=== PATIENT | male | born 1955 | race Caucasian/White ===

== ENCOUNTER 2018-08-29 07:27 | Inpatient (IN) | payer OTHER ==
[2018-08-22 13:39] VITALS: BMI 24.8
[2018-08-29] MEDS ORDERED: CEFAZOLIN 1 GM/D5W 1 GM/50 ML BAG IVPB ONE (07:42)
[2018-08-29] MEDS ORDERED: CELECOXIB 200 MG CAPSULE PO ONE (07:42)
[2018-08-29] MEDS ORDERED: GABAPENTIN 300 MG CAPSULE (FP) PO ONE (07:42)
[2018-08-29] MEDS ORDERED: oxyCODONE HCL 10 MG SUSTAINED ACTING TABLET PO ONE (07:42)
[2018-08-29] MEDS ORDERED: TRANEXAMIC ACID 1000 MG/10 ML VIAL IVPUSH ONE (07:42)
--- NOTE | 2018-08-29 08:06 | HP ---
Satellite [facility] - Chief Complaint Chief Complaint: left knee pain - Past Medical History Allergies/Adverse Reactions: Allergies Allergy/AdvReac Type Severity Reaction Status Date / Time Iodinated Contrast- Oral and Allergy Intermediate DIARRHEA Verified 08/22/18 13: 47 IV Dye ANTIBIOTICS AdvReac Intermediate DIARRHEA Uncoded 08/22/18 13:19 - Current Medications Current Medications: Home Medications Medication Instructions Recorded Acetaminophen [Tylenol -] 1,000 mg PO BID 08/22/18 Hydrochlorothiazide 25 mg PO DAILY 08/22/18 Ibuprofen 200 mg PO Q8H 08/22/18 Irbesartan 300 mg PO DAILY 08/22/18 Lansoprazole [Prevacid] 30 mg PO HS 08/22/18 Satellite Physical Exam - Physical Examination General Appearance: Well Nourished, Well Developed, Alert & Oriented x3 ENT: Clear Lung: Normal air movement Heart: Regular rate & rhythm Extremities: Other (left knee- + swelling, + ttp, decr rom, nvi, xrays show grade 4 tricompartmental djd) Neurological: Intact, Alert, Oriented Satellite Impression/Plan - Impression/Plan Impression: left knee djd Operative Procedure: left freddie tkr Date to be Performed: 08/29/18
[2018-08-29] MEDS ORDERED: MIDAZOLAM HCL 2 MG/2 ML SINGLE DOSE VIAL ONE (08:22)
[2018-08-29] MEDS ORDERED: BUPIVACAINE HCL/PF (5 MG/ML) 30 ML VIAL IJ ONE (08:22)
[2018-08-29] MEDS ORDERED: BUPIVACAINE LIPOSOME/PF (EXPAREL) 266 MG/20 ML VIAL ONE (08:22)
[2018-08-29] MEDS ORDERED: oxyCODONE HCL 5 MG TABLET PO PRN (08:34)
[2018-08-29] MEDS ORDERED: ONDANSETRON 4 MG/2 ML VIAL IVPUSH PRN (08:34)
[2018-08-29] MEDS ORDERED: ceFAZolin SODIUM 1 GM VIAL ONE ×2 (08:35→10:07)
[2018-08-29] MEDS ORDERED: VANCOMYCIN 1,000 MG VIAL (RESTRICTED TO ID ONLY) ONE (08:35)
[2018-08-29] MEDS ORDERED: ONDANSETRON 4 MG/2 ML VIAL ONE (09:56)
[2018-08-29] MEDS ORDERED: DEXAMETHASONE SOD PHOSPHATE 4 MG/1 ML VIAL ONE (09:56)
[2018-08-29] MEDS ORDERED: PROPOFOL 20 ML ONE ×3 (10:01→10:03)
[2018-08-29] MEDS ORDERED: LIDOCAINE HCL/PF 2% SDV 5ML VIAL ONE (10:03)
[2018-08-29] MEDS ORDERED: MAG HYDROX/AL HYDROX/SIMETH 30 ML UNIT-DOSE CUP PO PRN (10:04)
[2018-08-29] MEDS ORDERED: MAGNESIUM HYDROX 2400MG/30ML ORAL SUSPENSION 30 ML CUP PO PRN (10:04)
[2018-08-29] MEDS ORDERED: SODIUM CHLORIDE 0.9% P/F 10 ML VIAL IJ ONE (10:07)
[2018-08-29] MEDS ORDERED: TRANEXAMIC ACID 1000 MG/10 ML VIAL ONE (10:08)
[2018-08-29] MEDS ORDERED: LACTATED RINGERS SOLUTION 1,000 ML IV SCH (10:15)
[2018-08-29] MEDS ORDERED: VANCOMYCIN 1,000 MG VIAL (RESTRICTED TO ID ONLY) IVPB ONE (10:55)
[2018-08-29] MEDS ORDERED: ACETAMINOPHEN 1000 MG/100 ML VIAL (NON FORMULARY) IVPB ONE (11:34)
[2018-08-29] MEDS ORDERED: ACETAMINOPHEN INJECTION 100 ML IVPB ONE (11:57)
[2018-08-29] MEDS: LACTATED RINGERS SOLUTION 1,000 ML IV SCH (13:23)
[2018-08-29] MEDS: CEFAZOLIN 1 GM/D5W 1 GM/50 ML BAG IVPB SCH (17:33)
--- NOTE | 2018-08-29 17:59 | PN ---
Progress Note, Physician Chief Complaint: AWAKE ALERT S/P CYNTHIA LEFT KNEE TKR AWAKE ALERT NO DISTRESS EVENTS AND NOTES REVIEWED - Current Medication List Current Medications: Active Medications Al Hydroxide/Mg Hydroxide (Mylanta Oral Suspension -) 30 ml PO Q4H PRN PRN Reason: DYSPEPSIA Aspirin (Asa -) 325 mg PO DAILY@0800 [facility] Fentanyl (Sublimaze Injection -) 50 mcg IVPUSH [id number] PRN PRN Reason: PAIN-PACU ORDER X 4 DOSES ONLY Hydrochlorothiazide (Hctz -) 25 mg PO DAILY [facility] Lactated Ringer's (Lactated Ringers Solution) 1,000 mls @ 75 mls/hr IV ASDIR [facility] Last Admin: 08/29/18 13:23 Dose: Not Given Cefazolin Sodium (Ancef 1 Gm Premixed Ivpb -) 1 gm in 50 mls @ 100 mls/hr IVPB Q8H-IV JADE Stop: 08/30/18 02:29 Last Admin: 08/29/18 17:33 Dose: 100 mls/hr Lactated Ringer's (Lactated Ringers Solution) 1,000 mls @ 125 mls/hr IV ASDIR JADE Stop: 08/30/18 06:00 Last Admin: 08/29/18 13:00 Dose: 125 mls/hr Losartan Potassium (Cozaar -) 100 mg PO DAILY [facility] Magnesium Hydroxide (Milk Of Magnesia -) 30 ml PO PRN PRN PRN Reason: CONSTIPATION Multivitamins/Minerals/Vitamin C (Tab-A-Vit -) 1 tab PO DAILY [facility] Ondansetron HCl (Zofran Injection) 4 mg IVPUSH Q6H PRN PRN Reason: NAUSEA AND/OR VOMITING Oxycodone HCl (Roxicodone -) 10 mg PO Q4H PRN PRN Reason: PAIN LEVEL 6-10 Oxycodone HCl (Roxicodone -) 5 mg PO Q4H PRN PRN Reason: PAIN LEVEL 1-5 Pantoprazole Sodium (Protonix -) 40 mg PO DAILY [facility] Senna/Docusate Sodium (Pericolace -) 2 tablet PO BID [facility] - Objective Vital Signs: Vital Signs Temperature 97.8 F 08/29/18 13:27 Pulse Rate 80 08/29/18 14:04 Respiratory Rate 18 08/29/18 14:04 Blood Pressure 97/65 08/29/18 14:04 O2 Sat by Pulse Oximetry (%) 100 08/29/18 14:04 Constitutional: Yes: No Distress Eyes: Yes: WNL HENT: Yes: WNL Neck: Yes: WNL Cardiovascular: Yes: Regular Rate and Rhythm Respiratory: Yes: WNL Gastrointestinal: Yes: WNL Genitourinary: Yes: Other Musculoskeletal: Yes: Other (LEFT TKR WITH DRESSING) Extremities: Yes: Other Edema: No Peripheral Pulses WNL: Yes Integumentary: Yes: Other Wound/Incision: Yes: Dressing Dry and Intact (LEFT KNEE DRESSING NO OOZING OR DISCHARGE ON DRESSING) ...Motor Strength: LLE Psychiatric: Yes: WNL Problem List - Problems (1) Hypertension Code(s): I10 - ESSENTIAL (PRIMARY) HYPERTENSION Qualifiers: Hypertension type: essential hypertension Qualified Code(s): I10 - Essential (primary) hypertension (2) IBS (irritable bowel syndrome) Code(s): K58.9 - IRRITABLE BOWEL SYNDROME WITHOUT DIARRHEA Qualifiers: Irritable bowel syndrome type: with diarrhea Qualified Code(s): K58.0 - Irritable bowel syndrome with diarrhea (3) Osteoarthritis involving multiple joints on both sides of body Code(s): M15.9 - POLYOSTEOARTHRITIS, UNSPECIFIED (4) S/P total knee replacement Assessment/Plan: CYNTHIA TKR LEFT KNEE Code(s): Z96.659 - PRESENCE OF UNSPECIFIED ARTIFICIAL KNEE JOINT Qualifiers: Laterality: left Qualified Code(s): Z96.652 - Presence of left artificial knee joint Assessment/Plan S/P TKR LEFT KNEE CYNTHIA DVT PROPHYLAXIS NON-WEIGHT BEARING TODAY PT AND ORTHOPEDIC F/U HTN CONTROLLED ON LOSTAN/HCTZ LACTATE RINGERS CONTINUE CHECK LABS IN MORNING CHECK URINE OUTPUT VIA URINAL
[2018-08-29] MEDS ORDERED: LACTATED RINGERS SOLUTION 1,000 ML/1,000 ML INFUS.BAG IV STA (18:38)
[2018-08-29] MEDS: oxyCODONE HCL 5 MG TABLET PO PRN (20:01)
--- NOTE | 2018-08-29 21:21 | SPEC ---
DATE OF OPERATION: 08/29/2018 PREOPERATIVE DIAGNOSIS: Degenerative joint disease, left knee. POSTOPERATIVE DIAGNOSIS: Degenerative joint disease, left knee. PROCEDURE: Left total knee replacement with robotic-assisted navigation (MAKOplasty), cementless. SURGICAL ATTENDING: Jessee Samuel MD SENIOR FIELD SERVICE ENGINEER: MAURA Merino ANESTHESIA: Regional and spinal. CLOSURE: A Press-Fit Triathlon cementless knee system with a 3 femur, 3 tibia, 9 PS insert, a 32 patella; No. 1 Vicryl, fascia; 0 and 2-0 for subcutaneous; and 3-0 Monocryl subcuticular with skin glue for skin; 4-0 undyed Vicryl for pin sites. ESTIMATED BLOOD LOSS: Less than 100 mL. COMPLICATIONS: None. CONDITION: To recovery room in stable condition. DESCRIPTION OF OPERATIVE PROCEDURE: Patient was taken to the operating room on August 29, 2018. Regional and spinal anesthesia was administered by the anesthesiologist. IV Kefzol was administered prophylactically prior to the case as well as TXA. The left lower extremity was prepped and draped in the usual sterile fashion. The midline 10- to 12-cm longitudinal incision was made. Hemostasis was achieved with Bovie cautery. Sharp dissection was carried down to the extensor mechanism which was perform the procedure. Medial parapatellar arthrotomy was then performed, leaving a cuff of tissue for later closure. The patella was inverted and the knee was flexed up. The fat pad was excised. Subperiosteal dissection was done on the anteromedial proximal tibia until the knee was able to be brought forward. This was facilitated by taking the ACL, PCL and medial and lateral menisci. Checkpoints were placed in both the femur and in the tibia. Two parallel threaded pins were drilled superior to the knee joint through the already made incision from anterior to posterior just going through the anterior cortex but just engaging but not going through the posterior cortex. Two threaded pins were drilled through 2 small stab incisions in parallel fashion 1 handbreadth below the tibial tubercle through the anterior cortex of the tibia and engaging but not going through the posterior cortex. Both sets of pins were attached to navigation arrays for the CYNTHIA system. The knee was then registered with the navigation system with center of rotation of the hip, medial and lateral malleoli and multiple sites both on the tibia and on the femur. Confirmation of excellent registration was confirmed by "popping the bubbles." At this time, the knee was thoroughly inspected to remove all osteophytes around the knee. The knee was then tensioned in varus/valgus at both full extension and at 90 degrees of flexion to ascertain our gaps. The virtual position of the components was optimized to ensure equal gaps throughout the range of motion. Once this was performed, the robot was brought into the field, was registered. The bone was cut as per the specifications on both the tibia and on the femur. The box cuts were then made as well. Excellent trial stability was obtained on the femur. The tibial baseplate was allowed to "find itself" and then was clipped into place. Confirmation of excellent external rotation of that component was confirmed by the navigation device as well. The patella was calibered for thickness and cut at the appropriate level. The appropriate lollipop was used to drill 3 holes in the patella and a trial asymmetric patellar button was applied. The knee was taken through a range of motion and found to have excellent stability from full extension to full flexion with excellent tracking of the patella. The trial components were then removed. The lug holes were drilled in the femur. The cementless keel was punched in the tibia. The real Press-Fit components were malleted into place, first with the tibia and then with the femur, and then the patella was crimped into place as well. The real polyethylene liner was then clipped into place. Range of motion, stability and tracking were as described earlier. The knee was thoroughly irrigated with copious amounts of irrigation. Vancomycin powder was placed inside the joint. The medial parapatellar arthrotomy was then closed using No. 1 Vicryl interrupted suture. Post closure of the arthrotomy, the knee was taken through a range of motion and found to have no undue tension on the repair. The subcutaneous was then pulse antibiotic irrigated, closed with 0 and 2-0 Vicryl and 3-0 Monocryl subcuticular with skin glue for the skin. Prior to closure, the checkpoints were removed as were the threaded pins. The tibial pin sites were closed with 4-0 undyed Vicryl. A sterile pressure Aquacel dressing was applied. No tourniquet was used during the case. The total blood loss was approximately 100 mL. No complication. Patient was transferred to recovery in stable condition. Mayco IRWIN/[id number]
[2018-08-29] MEDS: SENNOSIDES/DOCUSATE COMBO (SENNA PLUS) TABLET (UD) PO SCH (21:23)
[2018-08-30] MEDS: oxyCODONE HCL 5 MG TABLET PO PRN ×4 (00:13→21:53)
[2018-08-30] MEDS: CEFAZOLIN 1 GM/D5W 1 GM/50 ML BAG IVPB SCH (01:37)
[2018-08-30 07:45] LABS: HEMATOCRIT 32.5 % (35.4-49); HEMOGLOBIN 10.5 GM/dl (11.7-16.9); MCH 25.6 pg (25.7-33.7); MCHC 32.3 g/dl (32.0-35.9); MEAN CELL VOLUME 79.4 fl (80-96); MEAN PLT VOLUME 7.7 fl (7.5-11.1); PLATELET COUNT 227 K/MM3 (134-434); RBC 4.09 M/mm3 (4.00-5.60); WHITE BLOOD COUNT 14.7 K/mm3 (4.0-10.8)
--- NOTE | 2018-08-30 07:46 | PN ---
Progress Note, Physician History of Present Illness: c/o pain - Current Medication List Current Medications: Active Medications Al Hydroxide/Mg Hydroxide (Mylanta Oral Suspension -) 30 ml PO Q4H PRN PRN Reason: DYSPEPSIA Aspirin (Asa -) 325 mg PO DAILY@0800 [facility] Fentanyl (Sublimaze Injection -) 50 mcg IVPUSH [id number] PRN PRN Reason: PAIN-PACU ORDER X 4 DOSES ONLY Lactated Ringer's (Lactated Ringers Solution) 1,000 mls @ 75 mls/hr IV ASDIR [facility] Last Admin: 08/29/18 13:23 Dose: Not Given Magnesium Hydroxide (Milk Of Magnesia -) 30 ml PO PRN PRN PRN Reason: CONSTIPATION Multivitamins/Minerals/Vitamin C (Tab-A-Vit -) 1 tab PO DAILY [facility] Ondansetron HCl (Zofran Injection) 4 mg IVPUSH Q6H PRN PRN Reason: NAUSEA AND/OR VOMITING Oxycodone HCl (Roxicodone -) 10 mg PO Q4H PRN PRN Reason: PAIN LEVEL 6-10 Last Admin: 08/30/18 06:10 Dose: 10 mg Oxycodone HCl (Roxicodone -) 5 mg PO Q4H PRN PRN Reason: PAIN LEVEL 1-5 Pantoprazole Sodium (Protonix -) 40 mg PO DAILY [facility] Senna/Docusate Sodium (Pericolace -) 2 tablet PO BID [facility] Last Admin: 08/29/18 21:23 Dose: Not Given - Objective Vital Signs: Vital Signs Temperature 99.2 F 08/30/18 06:00 Pulse Rate 88 08/30/18 06:00 Respiratory Rate 18 08/30/18 06:00 Blood Pressure 115/63 08/30/18 06:00 O2 Sat by Pulse Oximetry (%) 94 L 08/30/18 06:00 Cardiovascular: Yes: Pulse Irregular Respiratory: Yes: Regular, CTA Bilaterally Gastrointestinal: Yes: Normal Bowel Sounds, Soft Wound/Incision: Yes: Dressing Dry and Intact Problem List - Problems (1) S/P total knee replacement Assessment/Plan: -Pain control -Further plan per ortho Code(s): Z96.659 - PRESENCE OF UNSPECIFIED ARTIFICIAL KNEE JOINT Qualifiers: Laterality: left Qualified Code(s): Z96.652 - Presence of left artificial knee joint (2) Hypertension Assessment/Plan: -Observe Vital Signs Period Temp Pulse Resp BP Sys/Blackwood Pulse Ox Last 24 Hr 97.6 F-99.2 F 63-93 14-18 95-115/55-71 94-100 Code(s): I10 - ESSENTIAL (PRIMARY) HYPERTENSION Qualifiers: Hypertension type: essential hypertension Qualified Code(s): I10 - Essential (primary) hypertension
[2018-08-30] MEDS: ASPIRIN 325 MG TABLET PO SCH (08:09)
[2018-08-30 08:15] LABS: ALBUMIN 3.1 g/dl (3.4-5.0); CALCIUM 8.5 mg/dl (8.5-10); MAGNESIUM 1.6 mg/dL (1.8-2.4); PHOSPHOROUS 2.4 mg/dl (2.5-4.9); POTASSIUM 4.4 mmol/L (3.5-5.1); TOT PROT 5.4 g/dl (6.4-8.2)
[2018-08-30] MEDS: KETOROLAC TROMETHAMINE 30 MG/1 ML VIAL IVPUSH SCH ×4 (08:17→21:02)
[2018-08-30] MEDS: LACTATED RINGERS SOLUTION 1,000 ML IV SCH (09:22)
[2018-08-30] MEDS: SENNOSIDES/DOCUSATE COMBO (SENNA PLUS) TABLET (UD) PO SCH ×3 (09:24→21:07)
[2018-08-30] MEDS ORDERED: PANTOPRAZOLE 40 MG TABLET (FP) PO SCH (10:00)
[2018-08-30] MEDS ORDERED: HYDROCHLOROTHIAZIDE 25 MG TABLET (FP) PO SCH (10:00)
[2018-08-30] MEDS ORDERED: LOSARTAN POTASSIUM 50 MG TABLET (FP) PO SCH (10:00)
[2018-08-30] MEDS ORDERED: PATIENT'S OWN MEDICATION (NON-FORMULARY) (Irbesartan [Irbesartan] 300 MG) PO SCH (10:00)
[2018-08-30] MEDS ORDERED: MULTIVITAMINS (DAILY MVI) TABLET (FP) PO SCH (10:00)
--- NOTE | 2018-08-30 10:24 | PN ---
Progress Note (short form) - Note Progress Note: Ortho Pt seen and examined s/p left freddie tkr pod #1- Selected Entries 08/30/18 09:43 Temperature 98.4 F Pulse Rate 97 H Respiratory 18 Rate Blood Pressure 96/50 L Laboratory Tests 08/30/18 07:20 WBC 14.7 H Hgb 10.5 L Hct 32.5 L Plt Count 227 dressing c/d/i, calf soft, nt rom 0-30, nvi a/p PT dvt ppx pain control d/c home tomorrow if stable
[2018-08-30] MEDS ORDERED: LOPERAMIDE HCL 2 MG CAPSULE PO PRN (13:27)
--- NOTE | 2018-08-30 14:10 | PN ---
Progress Note (short form) - Note Progress Note: Anesthesia post op/Pain Pt seen and examined S:Alert and awake O: Vital Signs Temperature 98 F 08/30/18 13:46 Pulse Rate 98 H 08/30/18 13:46 Respiratory Rate 18 08/30/18 13:46 Blood Pressure 94/68 08/30/18 13:46 O2 Sat by Pulse Oximetry (%) 98 08/30/18 13:46 CBC, BMP 08/30/18 07:20 08/30/18 07:20 A/P: Current Active Problems Hypertension (Acute) IBS (irritable bowel syndrome) (Acute) Osteoarthritis involving multiple joints on both sides of body (Acute) S/P total knee replacement (Acute) Doing well post op Continue current care Raheel Alexander MD
--- NOTE | 2018-08-30 14:49 | EKG ---
Test Reason : Blood Pressure : / mmHG Vent. Rate : 101 BPM Atrial Rate : 101 BPM P-R Int : 132 ms QRS Dur : 080 ms QT Int : 324 ms P-R-T Axes : 046 -09 017 degrees QTc Int : 420 ms SINUS TACHYCARDIA INFERIOR-POSTERIOR INFARCT , AGE UNDETERMINED ABNORMAL ECG NO PREVIOUS ECGS AVAILABLE Confirmed by APRIL AJ, SHANIQUA ([id number]) on 08/30/2018 2:49:01 PM Referred By: eJssee Samuel Confirmed By:SHANIQUA CHEN MD
[2018-08-31] MEDS: KETOROLAC TROMETHAMINE 30 MG/1 ML VIAL IVPUSH SCH (04:45)
[2018-08-31] MEDS: oxyCODONE HCL 5 MG TABLET PO PRN ×2 (04:45→08:46)
[2018-08-31 06:28] VITALS: BP 112/69; PULSE 97; TEMP 99.2
--- NOTE | 2018-08-31 07:40 | DS ---
Physical Examination Vital Signs: Vital Signs Temperature 99.2 F 08/31/18 06:00 Pulse Rate 97 H 08/31/18 06:00 Respiratory Rate 18 08/31/18 06:00 Blood Pressure 112/69 08/31/18 06:00 O2 Sat by Pulse Oximetry (%) 96 08/31/18 06:00 Cardiovascular: Yes: Regular Rate and Rhythm Respiratory: Yes: Regular, CTA Bilaterally Gastrointestinal: Yes: Normal Bowel Sounds, Soft Edema: No Wound/Incision: Yes: Dressing Dry and Intact Labs: CBC, BMP 08/30/18 07:20 Discharge Summary Reason For Visit: OSTEOARTHRITIS Current Active Problems Hypertension (Acute) IBS (irritable bowel syndrome) (Acute) Osteoarthritis involving multiple joints on both sides of body (Acute) S/P total knee replacement (Acute) Hospital Course: 62y/o male s/p tkr and htn. doing well without any complaints of cp or sob for possible dc today. Laboratory Tests 08/30/18 08/31/18 07:20 07:05 WBC 14.7 H 13.3 H Hgb 10.5 L 9.6 L leukocytosis and anemia expected postop--pt afebrile and no other s/s to indicate infection. Outpatient follow up Condition: Good - Instructions Diet, Activity, Other Instructions: Post-op Instructions-Total Knee Replacement Call the office for a follow-up appointment in 1 week - [phone] Aspirin 325mg daily for 6 weeks. Pain medication was sent into your pharmacy. Apply Graduated Compression Stockings (TEDs) to both lower extremities- remove daily for hygiene ONLY Apply Sequential Compression Device (SCDs) to both Lower extremities remove for PT and hygiene ONLY Apply cold packs to affected area for 15 minutes every 2 hours. Physical Therapist will come to your home for the first 5 days. You will be set up with outpatient PT at your first post-operative visit. Patient may ambulate as tolerated-encourage self care (at least every 2-3 hours while awake) with walker or cane Maintain Aquacel (waterproof) dressing to operative wound (will be removed by surgeon at first office visit) Shower with Aquacel dressing in place-if Aquacel integrity compromised, remove and apply dry sterile dressing and notify Orthopedist. DO NOT SHOWER unless Orthopedists approves without Aquacel dressing CONTACT THE OFFICE FOR ANY CHANGE IN YOUR CONDITION (for example-fever greater than 102 degrees, excessive bleeding from operative site, purulent drainage, severe swelling or pain) GO TO THE EMERGENCY ROOM IF THERE IS A MEDICAL EMERGENCY Knee Precautions: * Keep a rolled towel under affected heel while in bed or chair (to keep knee in extension) * Keep affected leg elevated except during mealtimes * DO NOT PLACE PILLOW UNDER AFFECTED KNEE * If you have any questions, please do not hesitate to call the office - . follow up with your doctor for lab monitoring Referrals: Jessee Samuel MD [Staff Physician] - Disposition: VNS/HOME HEALTH CARE - Home Medications Comprehensive Discharge Medication List: Ambulatory Orders Acetaminophen [Tylenol .Extra-Strength -] 1,000 mg PO BID 08/22/18 Hydrochlorothiazide 25 mg PO DAILY 08/22/18 Irbesartan 300 mg PO DAILY 08/22/18 Lansoprazole [Prevacid] 30 mg PO HS 08/22/18 Aspirin [ASA -] 325 mg PO DAILY@0800 tablet 08/31/18 Multivitamins [Multivit ([facility] Formulary)] 1 tab PO DAILY tab 08/31/18
[2018-08-31 08:02] LABS: HEMATOCRIT 29.5 % (35.4-49); HEMOGLOBIN 9.6 GM/dl (11.7-16.9); MCH 26.1 pg (25.7-33.7); MCHC 32.5 g/dl (32.0-35.9); MEAN CELL VOLUME 80.1 fl (80-96); MEAN PLT VOLUME 7.9 fl (7.5-11.1); PLATELET COUNT 194 K/MM3 (134-434); RBC 3.69 M/mm3 (4.00-5.60); RDW 16.8 % (11.9-15.9); WHITE BLOOD COUNT 13.3 K/mm3 (4.0-10.8)
[2018-08-31] MEDS: ASPIRIN 325 MG TABLET PO SCH (08:05)
--- NOTE | 2018-08-31 08:21 | PN ---
Progress Note (short form) - Note Progress Note: Ortho Pt seen and examined s/p left freddie tkr pod #2 Selected Entries 08/31/18 06:00 Temperature 99.2 F Pulse Rate 97 H Respiratory 18 Rate Blood Pressure 112/69 Laboratory Tests 08/31/18 07:05 WBC 13.3 H Hgb 9.6 L Hct 29.5 L Plt Count 194 dressing c/d/i, calf soft, nt rom 0-80, nvi a/p PT dvt ppx pain control d/c home today f/u in 1 week
[2018-08-31] MEDS ORDERED: PREVACID 30 MG PO SCH (10:00)
--- NOTE | 2018-09-01 16:03 | PATH ---
Surgical Pathology Report Patient Name: TAWANA GARDNER Med. Rec. #: [id number] /Age/Gender: 1955 (Age: 62) / M Account: [id number] Location: [facility] MED-SURG Taken: 08/29/2018 Received: 08/29/2018 Reported: 09/01/2018 Physicians: Jessee Samuel M.D. Specimen(s) Received LEFT KNEE BONES Clinical History Osteoarthritis left knee Final Diagnosis KNEE BONES, LEFT, TOTAL KNEE REPLACEMENT: DEGENERATIVE JOINT DISEASE. Electronically Signed Wilda Thomas M.D. Gross Description Received in formalin labeled "left knee bones," is a 10.0 x 8.5 x 1.3 cm aggregate of multiple portions of bone and soft tissue. The tibial plateau measures 6.3 x 5.0 x 1.3 cm. There are multiple areas of eburnation present, measuring up to 2.2 cm in greatest dimension. The remaining articular surfaces are herzog-brown and diffusely granular. The underlying trabecular bone is yellow and hard. Obstetrician And Gynaecologist sections are submitted in one cassette, following decalcification. /08/30/2018 saudi08/30/2018
== END 2018-08-31 12:43 | disposition home health service (06) | DRG 302 ==
LOC: FM/S 07:27
PROVIDERS: ADMIT Orthopaedic Surgery; ATTEND Orthopaedic Surgery
PROC: 8E0YXCZ Robotic Assisted Procedure of Lower Extremity (ICD-10-PCS; 2018-08-29)
PROC: 0SRD0JA Replacement of Left Knee Joint with Synthetic Substitute, Uncemented, Open Approach (ICD-10-PCS; principal; 2018-08-29 10:10)
DX: M17.12 Unilateral primary osteoarthritis, left knee (principal); I10 Essential (primary) hypertension; K58.9 Irritable bowel syndrome, unspecified
CPT/HCPCS: 36415; 73560-TC-LT-FY; 80053; 83735; 84100; 85027; 86803; 87389; 88304-TC; 88311-TC; 93005; 94760; 97116-GP; 97163-GP; J0131

== ENCOUNTER 2021-12-08 23:39 | Emergency (ER) | payer OTHER, BC ==
[2021-12-08 23:49] VITALS: TEMP 98.4; BMI 19.6
[2021-12-09] MEDS ORDERED: ACETAMINOPHEN 1000 MG/100 ML BAG IVPB ONE (00:47)
[2021-12-09] MEDS ORDERED: ACETAMINOPHEN INJECTION 100 ML IVPB ONE (01:04)
[2021-12-09 01:16] LABS: BASO % 2.1 % (0-2.0); EOS % 1.9 % (0-4.5); HEMOGLOBIN 10.5 GM/dL (11.7-16.9); LYMPH % 21.9 % (8-40); MCH 26.3 pg (25.7-33.7); MCHC 31.7 g/dl (32.0-35.9); MEAN PLT VOLUME 7.3 fl (7.5-11.1); MONO % 6.9 % (3.8-10.2); NEUT % 67.2 % (42.8-82.8); PLATELET COUNT 291 10^3/uL (134-434); RBC 3.98 M/mm3 (4.00-5.60); RDW 14.5 % (11.9-15.9); WHITE BLOOD COUNT 7.8 K/mm3 (4.0-10.0)
[2021-12-09 01:34] LABS: CALCIUM 8.5 mg/dL (8.5-10.1)
[2021-12-09 01:35] LABS: ALBUMIN 3.1 g/dl (3.4-5.0); BLOOD UREA NITROGEN 26.3 mg/dL (7-18); MAGNESIUM 2.1 mg/dL (1.8-2.4)
[2021-12-09 01:40] LABS: BILIRUBIN,TOTAL 0.3 mg/dL (0.2-1); TOT PROT 6.2 g/dl (6.4-8.2)
[2021-12-09 06:03] VITALS: BP 132/87; PULSE 78; RESP 16
== END 2021-12-09 06:00 | disposition left against medical advice (07) ==
LOC: JER 23:39
PROC: 3E033GC Introduction of Other Therapeutic Substance into Peripheral Vein, Percutaneous Approach (ICD-10-PCS; principal; 2021-12-08)
DX: R51.9 Headache, unspecified (principal)
CPT/HCPCS: 36415; 70450-TC; 71046-TC-FY; 71250-TC; 80053; 83735; 84484; 85025; 93005; 93010; 99285-25; C9803-CS; U0003; U0005